=== PATIENT | male | born 1995 ===

== ENCOUNTER 2021-08-10 12:40 | Emergency (ER) | payer OTHER ==
[~2021-08-10] VITALS: Ht 172.7 cm; Wt 127.0 kg
[2021-08-10 13:44] LABS: Source, Urine Clean Catch
[2021-08-10 14:11] LABS: Bilirubin, Urine Neg (Neg); Blood, Urine 3+ (Neg); Glucose Qualitative, Urine 4+ (Neg); Ketones, Urine 1+ (Neg); Leukocyte Esterase, Urine 2+ (Neg); Nitrite, Urine Neg (Neg); Protein, Urine Neg (Neg); Urobilinogen, Urine NORM (Normal); pH, Urine 6.5 (5.0-8.0)
[2021-08-10 14:32] LABS: Appearance, Urine Hazy (Clear); Color, Urine Pale Yellow (P-Yellow)
[2021-08-10 14:36] LABS: Bacteria Mod /hpf; Squamous Epithelial Cells Few /hpf (Few); Yeast/Fungi Urine Mod /hpf
[2021-08-12 00:08] LABS: CHLAMYDIA TRACHOMATIS, NAA Negative (Negative)
== END 2021-08-10 15:30 | disposition home or self-care (01) ==
LOC: ER 12:40
PROVIDERS: Physician Assistant
DX: N47.6 Balanoposthitis (principal); E11.9 Type 2 diabetes mellitus without complications
CPT/HCPCS: 81001; 87086; 87491; 87591; 99283; A9270

== ENCOUNTER → 2021-08-29 | Outpatient (CLI) | payer OTHER | END | disposition home or self-care (01) | LOC: LAB SHORT 17:47 → LAB 17:47 | DX: B37.2 Candidiasis of skin and nail (principal); R30.9 Painful micturition, unspecified | CPT/HCPCS: 87086 ==